=== PATIENT | male | born 1990 | race Caucasian/White ===

== ENCOUNTER 2017-08-25 22:13 | Emergency (ER) | payer OTHER ==
[~2017-08-25] VITALS: Ht 180.3 cm; Wt 77.1 kg
[2017-08-25] MEDS ORDERED: ADDERALL XR 3030 M1 PO (23:00)
[2017-08-25] MEDS ORDERED: LAMICTAL200 MG PO (23:01)
== END 2017-08-26 03:52 | disposition home or self-care (01) ==
LOC: ER 22:13
DX: R07.89 Other chest pain (principal); R53.83 Other fatigue; R47.81 Slurred speech